=== PATIENT | female | born 1960 | race Caucasian/White ===

== ENCOUNTER 2024-05-01 14:38 | Inpatient (IN) | payer OTHER, SELFPAY ==
[2024-04-30] VITALS (8 sets, daily range): BP systolic 109–180; BP diastolic 76–109; BMI 29.1
[2024-04-30 11:28] LABS: % Basophils 0.1 % (0-2); % Immature Granulocytes 0.6 % (0-0.5); % Monocytes 9.2 % (1.7-9.3); % Neutrophils 82.1 % (42.2-75.2); Absolute Immature Granulocytes 0.1 10^3/uL (0-0.05); Absolute Lymphocytes 1.4 10^3/uL (1.2-3.4); Absolute Monocytes 1.6 10^3/uL (0.1-0.6); Absolute Neutrophils 14.1 10^3/uL (1.4-6.5); Hemoglobin 12.4 g/dL (12.0-16.0); Mean Corp Hgb Conc. 33.5 g/dL (33.0-37.0); Mean Corpuscular Hgb 28.6 pg (27.0-31.0); Mean Corpuscular Volume 85.5 fL (81.0-99.0); Mean Platelet Volume 9.4 fL (7.4-10.4); Nucleated Red Blood Cells % 0 %; Platelet Count 359 10^3/uL (130-400); Red Blood Cell Count 4.33 10^6/uL (4.20-5.40); Red Cell Dist. Width 14.5 % (11.5-14.5); White Blood Cell Count 17.2 10^3/uL (4.8-10.8)
[2024-04-30 11:38] LABS: AST (SGOT) 32 U/L (14-36); Albumin 4.8 g/dl (3.5-5.0); Alkaline Phosphatase 105 U/L (38-126); Blood Urea Nitrogen 33 mg/dl (7-17); Calcium 9.7 mg/dl (8.4-10.2); Carbon Dioxide 17 mmol/L (22-30); Chloride 102 mmol/L (98-107); Glucose 165 mg/dl (70-99); Lipase 77 U/L (23-300); Potassium 3.6 mmol/L (3.5-5.1); Sodium 143 mmol/L (135-145); Total Bilirubin 1.2 mg/dl (0.2-1.3); Total Protein 7.3 g/dl (6.3-8.2); eGFR 50.55
--- NOTE | 2024-04-30 11:41 | ED.GENMED ---
History of Present Illness
General
Chief Complaint: Abdominal Symptoms
Source: patient
Exam Limitations: none
Time Seen by Provider: 04/30/24 11:32
Nursing documentation reviewed up to this point in time: agreed with
History of Present Illness
History of Present Illness:
63-year-old female with history of HTN, HLD, GERD, hernia surgery 01/27, and hysterectomy presents stating 2 days ago she became nauseous and was vomiting 'a lot,' had generalized back ache, felt chilled but had no fever.
Yesterday she felt extremely thirsty, she could not hold anything down, several episodes of vomiting, and had heartburn.
Today she feels weak, her mouth is extremely dry, she has carpal spasms, vomited several times this morning her last emesis was 2 hours ago. Feels nauseous now. She denies chest pain or trouble breathing, denies abdominal pain. Denies diarrhea or
constipation.
Past History
Past History
ED Past Medical History: GERD, HTN and Hypercholesterolemia
ED Past Surgical History: Gynecological (Hysterectomy) and Other (Hernia surgery)
Review of Systems
Review of Systems
Allergies reviewed?: Yes
All Other Systems: ROS reviewed and negative except as documented in HPI and ROS
Constitutional: Reports fatigue; Denies fever
EENT: Denies sore throat
Respiratory: Denies trouble breathing
Cardiac: Denies chest pain
ABD/GI: Reports nausea and vomiting; Denies abdominal pain, diarrhea or constipated
: Denies dysuria, frequency, difficulty voiding or urgency
Musculoskeletal: Reports no symptoms
Skin: Reports no symptoms
Neurological: Reports no symptoms
Phy Exam
Physical Exam
Physical Exam:
GENERAL: No acute distress. A&Ox3.
CONSTITUTIONAL: Afebrile.
EYES: PERRL, conjunctivae normal
ENMT: moist mucus membranes, Pharynx nl
RESPIRATORY: Regular respirations, nonlabored, lungs clear.
CARDIOVASCULAR: Regular rate and rhythm, no murmurs, no rubs.
GI: Soft, nontender, normal BS
MUSCULOSKELETAL: Moves with ease. Well perfused.
SKIN: Warm, dry, pink
PSYCH: Normal mood and affect. Well kept, interactive and appropriate
NEUROLOGIC: Awake, alert and oriented. No focal neurological deficits
Course
Orders/Labs/Results
Orders:
Orders
04/30/24 11:04
Electrocardiogram (*1) Urgent
Reason for Study: Fatigue / Weakness
04/30/24 11:05
EKG- Treatment ONCE
04/30/24 11:06
Complete Blood Count/With Diff Urgent
Comprehensive Metabolic Panel Urgent
Lactic Acid Urgent
Lipase Urgent
04/30/24 11:08
Troponin I Urgent
04/30/24 11:40
0.9% Sodium Chloride 1000 ml [Nss] 1,000 ml IV BOLUS
Ondansetron Injectable [Zofran] 4 mg IV NOW STA
04/30/24 11:58
CT Abd/pel W Iv And Oral Contr Urgent
Comment:
Reason For Exam: vomiting, acidotic, hernia surg [place], belly benign
Iohexol [Omnipaque] See Protocol PO NOW STA
Pantoprazole [Protonix IV] 80 mg IV NOW STA
04/30/24 13:15
0.9% Sodium Chloride 1000 ml [Nss] 1,000 ml IV Wide Open mls/hr
04/30/24 13:49
Diphenhydramine [Benadryl] 50 mg .ROUTE .STK-MED ONE
Prochlorperazine [Compazine] 10 mg .ROUTE .STK-MED ONE
04/30/24 13:50
Diphenhydramine [Benadryl] 50 mg IV NOW STA
Prochlorperazine [Compazine] 10 mg IV NOW STA
04/30/24 14:37
Complete Blood Count/With Diff Urgent
Comprehensive Metabolic Panel Urgent
Lactic Acid Urgent
Magnesium Urgent
Comment: ADD ON
04/30/24 Dinner
NPO
Allow oral meds: Yes
Allow clear liquids: Sips of Clears
NPO with Ice Chips: Yes
04/30/24 16:30
Add On- LAB Routine
Tests Added?: mag level
04/30/24 17:30
Admit/Transfer Patient As Directed
Co-Sign Provider:
Level of Care: Observation services
Assign to:: Telemetry
Physician / Group: Mario Alberto Valles
Diagnosis: Nausea and Vomiting
Reason for Telemetry: Other
Other Reason for Telemetry: QTC
Date to Stop Telemetry: 05/02/24
Time to Stop Telemetry: 11:00
Reason for Hospitalization: ABOVE
PRN Pain Medication Management As Directed
May give lesser potent ordered pain med per pt: Yes
preference::
Protocol:: Medication orders for pain may be administered in a
manner that supports deferring to patient preference
when the pt is:
- Requesting an ordered lesser potent pain medication.
Least to most potent pain medications are defined
as: acetaminophen < NSAID < tramadol < opioids
(morphine, oxycodone, hydromorphone).
- Requesting a lesser dose of the same medication IF
ORDERED.
- Requesting a less intrusive route of administration
if both routes are prescribed by the provider (PO <
IV).
04/30/24 17:33
Code Status As Directed
Resuscitation Status: Full Code
04/30/24 18:04
Old Records Request [Obtain Records] As Directed
Dates of Information to be Released: last
Type of Information Requested: Discharge Summary
Other
Comment: OP notes from Dm
04/30/24 18:14
0.9% Sodium Chloride 1000 ml [Nss] 1,000 ml IV 100 mls/hr
Enoxaparin Sodium [Lovenox] 40 mg SC QPM
HydrALAZINE [Apresoline] 5 mg IV Q6HPRN PRN
Potassium Chloride [KCl] 40 meq Dextrose 5%/Water 250 ml [D5w] 250 ml IV NOW
Prochlorperazine [Compazine] 5 mg IV Q6HPRN PRN
04/30/24 18:14
SURGICAL CONSULT Routine
Consulting Provider: Lenny Rosales
Was physician already notified: Yes
Reason for consult: Nausea and vomiting. Large Hiatal Hernia on CT abd
DX Deep Vein Thrombosis Video Routine
04/30/24 18:15
0.9% Sodium Chloride 1000 ml [Nss] 1,000 ml IV 100 mls/hr
04/30/24 19:00
Flush (0.9% Sodium Chloride) [Flush (Nss)] See Dose Instructions IV PER PROTOCOL
04/30/24 19:43
Lactate Level [Lactic Acid] Urgent
04/30/24 20:00
0.9% Sodium Chloride [Nss (Preservative Free)] 10 ml IV BID
Pantoprazole [Protonix IV] 40 mg IV BID
04/30/24 20:14
Melatonin 5 mg PO NOW STA
04/30/24 21:30
Urinalysis Reflex To Culture Urgent
Date Specimen was Collected: 04/30/24
Time Specimen was Collected: 11:41
Urine Microscopic Reflex Cult Urgent
Urine Culture Urgent
PATRICA Source: U
Specimen Description:
Date Specimen was Collected: 04/30/24
Time Specimen was Collected: 11:41
05/01/24 02:17
Famotidine [Pepcid] 20 mg IV NOW STA
05/01/24 02:18
NG Tube [Gastrointestinal Tubes] As Directed
Type: [place]kins sump
To suction?: Yes
Type of suction: Low intermittent
Irrigate tube?: Yes
Irrigant: Tap Water
Frequency: Q4H
Amount in mls: 30
Irrigation Directions: Irrigate Q4H and PRN
05/01/24 02:19
0.9% Sodium Chloride [Nss (Preservative Free)] 8 ml IV NOW STA
05/01/24 06:57
Basic Metabolic Panel IN AM
Complete Blood Count/With Diff IN AM
Hepatitis C Antibody IN AM
05/01/24 08:00
Lidocaine [Lidocaine 4% Patch] 1 patch TOPICAL DAILY
Apply Lidocaine patch(s) to:: back
05/01/24 09:17
CXR2 [CR Chest - 2 Views ] Urgent
Comment:
Reason For Exam: leucocysis
05/01/24 09:26
Blood Culture Routine
PATRICA Source: Blood/Venous
Specimen Description:
05/01/24 10:16
Blood Culture Routine
PATRICA Source: Blood/Venous
Specimen Description:
05/01/24 11:19
Lorazepam [Ativan] 0.5 mg IV Q6HPRN PRN
05/01/24 11:20
HYDROmorphone [Dilaudid] 0.25 mg IV Q3HPRN PRN
HYDROmorphone [Dilaudid] 0.5 mg IV Q3HPRN PRN
05/01/24 11:26
0.9% Sodium Chloride [Nss (Preservative Free)] 0.25 ml IV Q6HPRN PRN
05/01/24 15:17
Procalcitonin Routine
PCT Algorithmm Indication: Sepsis
05/01/24 20:00
Remove Patch [Remove Lidocaine Patch] 1 patch REMOVE DAILY@1999
05/02/24 11:00
DC Protocol for Telemetry ONCE
Abnormal Lab Results
04/30/24 04/30/24 04/30/24
11:06 14:37 21:30
WBC 17.2 H 10^3/uL 13.8 H 10^3/uL
(4.8-10.8) (4.8-10.8)
RBC 3.85 L 10^6/uL
(4.20-5.40)
Hgb 11.1 L g/dL
(12.0-16.0)
Hct 32.8 L %
(37.0-47.0)
MCHC
RDW 14.6 H %
(11.5-14.5)
Abs Immat Gran (auto) 0.1 H 10^3/uL 0.1 H 10^3/uL
(0-0.05) (0-0.05)
Absolute Neuts (auto) 14.1 H 10^3/uL 11.7 H 10^3/uL
(1.4-6.5) (1.4-6.5)
Absolute Lymphs (auto) 0.9 L 10^3/uL
(1.2-3.4)
Absolute Monos (auto) 1.6 H 10^3/uL 1.2 H 10^3/uL
(0.1-0.6) (0.1-0.6)
Immature Gran % 0.6 H %
(0-0.5)
Neutrophils % 82.1 H % 84.2 H %
(42.2-75.2) (42.2-75.2)
Lymphocytes % 8.0 L % 6.8 L %
(20.5-51.1) (20.5-51.1)
Potassium 3.0 L mmol/L
(3.5-5.1)
Carbon Dioxide 17 L mmol/L 18 L mmol/L
(22-30) (22-30)
BUN 33 H mg/dl 28 H mg/dl
(7-17) (7-17)
Creatinine 1.2 H mg/dL
(0.6-1.0)
Glucose 165 H mg/dl 140 H mg/dl
(70-99) (70-99)
Lactic Acid 5.9 H* mmol/L 2.9 H mmol/L
(0.7-2.0) (0.7-2.0)
Calcium 8.3 L mg/dl
(8.4-10.2)
ALT 38 H U/L
(0-35)
Urine Ketones 1+ A
(Negative)
Ur Occult Blood Reflex 3+ A
(Negative)
Leukocyte Esterase Rfl Trace A
(Negative)
Urine RBC 16-20 A /HPF
(0-2)
Urine Bacteria (Reflex) Moderate A
(Negative)
05/01/24
06:57
WBC 20.7 H 10^3/uL
(4.8-10.8)
RBC 3.94 L 10^6/uL
(4.20-5.40)
Hgb 11.6 L g/dL
(12.0-16.0)
Hct 35.4 L %
(37.0-47.0)
MCHC 32.8 L g/dL
(33.0-37.0)
RDW 15.3 H %
(11.5-14.5)
Abs Immat Gran (auto) 0.2 H 10^3/uL
(0-0.05)
Absolute Neuts (auto) 17.5 H 10^3/uL
(1.4-6.5)
Absolute Lymphs (auto)
Absolute Monos (auto) 1.8 H 10^3/uL
(0.1-0.6)
Immature Gran % 0.8 H %
(0-0.5)
Neutrophils % 84.6 H %
(42.2-75.2)
Lymphocytes % 5.7 L %
(20.5-51.1)
Potassium
Carbon Dioxide 19 L mmol/L
(22-30)
BUN 22 H mg/dl
(7-17)
Creatinine
Glucose 127 H mg/dl
(70-99)
Lactic Acid
Calcium
ALT
Urine Ketones
Ur Occult Blood Reflex
Leukocyte Esterase Rfl
Urine RBC
Urine Bacteria (Reflex)
05/01/24 06:57
05/01/24 06:57
Vital Signs
Initial and Last Documented VS:
Initial Vital Signs
Temp Pulse Resp BP Pulse Ox
98.1 F 98 30 109/76 99
04/30/24 11:07 04/30/24 11:07 04/30/24 11:07 04/30/24 11:07 04/30/24 11:07
Last Documented Vital Signs
Temp Pulse Resp BP Pulse Ox
98.1 F 80 18 169/95 96
05/02/24 17:38 05/02/24 17:38 05/02/24 17:38 05/02/24 17:38 05/02/24 13:47
MDM/Problems Addressed
Differential Diagnosis Includes:
viral illness, dehydration, bowel obstruction
MDM/Problems Addressed:
63-year-old female with history of HTN, HLD, GERD, hernia surgery 01/2024 and hysterectomy presents stating 2 days ago she became nauseous and was vomiting 'a lot,' had generalized back ache, felt chilled but had no fever.
Yesterday she felt extremely thirsty, she could not hold anything down, several episodes of vomiting, and had heartburn.
Today she feels weak, her mouth is extremely dry, she has carpal spasms, vomited several times this morning her last emesis was 2 hours ago. Feels nauseous now. She denies chest pain or trouble breathing, denies abdominal pain. Denies diarrhea or
constipation.
Afebrile,
Abdomen benign
EKG Sinus w PAC
Lactic 5.2
CBC: WBC 17.2 with elevated neutrophils and monos
Fingerstick BS
CMP: BUN/Creat 33/1.2 Bicarb 17, glucose 165
Gap: [address] Ackerman who agrees, to hydrate CT abdomen.
1:15 p.m.
In to re evaluate, feeling better after Zofran. 1500 ml IV in so far. Will give another liter.
2:[address] abd/pelvis radiology report read: IMPRESSION:
Large hiatal hernia containing large volume diluted oral contrast. Oral contrast only additionally opacifies grossly unremarkable small bowel.
Entire large bowel markedly limited in evaluation without oral contrast opacification and with virtually completely empty hepatic flexure, transverse colon, descending colon and proximal to mid sigmoid colon. Mild descending colon and sigmoid
diverticulosis. Cannot exclude some thickening of the wall segments of the virtually completely empty colon such as colitis. No intestinal obstruction or free air.
Diffuse fatty liver and small simple left lobe hepatic cyst.
Bilateral subcentimeter low-attenuation renal lesions too small to characterize.
Moderate to marked T9 and L1 vertebral compression fractures, most likely remote.
Pt resting quietly, nausea improved.
Will repeat labs as abnormalities most likely due to significant vomiting and dehydration.
Case discussed with Dr. Balderas (Dr. Ackerman is off duty) who agrees with plan.
3:45 p.m.
Labs improving
WBC 13.8
Lactic 2.9
BUN/creat 1.0
Bicarb 18
Plan: Admit: Intractable nausea and vomiting, dehydration, lactic acidosis
Hospitalist notified of admission
*Critical Care Note
Total Time (30-74mins, 75-104mins- exclusive of procedures): Not Applicable
ED Attending Note
-
Portions of this chart may have been created with voice recognition software.� Occasional wrong word or��sound alike� substitutions may have occurred due to the inherent limitations of voice recognition software.
Discharge Plan
Departure
Patient Disposition: Admit
Date of Disposition: 04/30/24
Time of Disposition: 15:54
Admit to: Med/Surg
Presentation/result/management discussed w/ accepting MD/DO: Hospitalist
Condition: Fair
Discharge Problem:
Intractable nausea and vomiting, Acute dehydration, Acute lactic acidosis
Interventions
Interventions:
*Risk Screen - Suicide Last Done: 04/30/24 11:07
*General Assessment Last Done: 04/30/24 11:07
*Neglect/Abuse Screening Last Done: 04/30/24 11:07
*ED COVID-19 Vaccine History Last Done: 04/30/24 11:07
*Nursing Disposition Last Done: 04/30/24 18:25
YD-Uexmkp-Alvpkoqfgv Assessment Last Done: 04/30/24 11:16
Discharge Date and Time
Discharge Date/Time: 04/30/24 18:26
[2024-04-30 11:44] LABS: Lactic Acid 5.9 mmol/L (0.7-2.0)
[2024-04-30] MEDS: ZOFRAN 4 MG IV (11:44)
[2024-04-30] MEDS: NSS 1000 IV ×3 (11:45→19:03)
[2024-04-30 11:49] LABS: Troponin I < 0.012 ng/ml
[2024-04-30 11:58] LABS: ALT (SGPT) 38 U/L (0-35)
[2024-04-30] MEDS: PROTONIX IV 80 MG IV (12:08)
[2024-04-30] MEDS: OMNIPAQUE 50 ML PO (12:08)
[2024-04-30] MEDS: COMPAZINE 10 MG IV (13:51)
[2024-04-30] MEDS: BENADRYL 50 MG IV (13:51)
[2024-04-30 15:06] LABS: Lactic Acid 2.9 mmol/L (0.7-2.0)
[2024-04-30 15:07] LABS: ALT (SGPT) 23 U/L (0-35); AST (SGOT) 24 U/L (14-36); Alkaline Phosphatase 86 U/L (38-126); Blood Urea Nitrogen 28 mg/dl (7-17); Calcium 8.3 mg/dl (8.4-10.2); Carbon Dioxide 18 mmol/L (22-30); Chloride 106 mmol/L (98-107); Glucose 140 mg/dl (70-99); Sodium 142 mmol/L (135-145); Total Bilirubin 1.2 mg/dl (0.2-1.3); Total Protein 6.3 g/dl (6.3-8.2); eGFR > 60.00
[2024-04-30 15:11] LABS: % Basophils 0.1 % (0-2); % Immature Granulocytes 0.4 % (0-0.5); % Lymphocytes 6.8 % (20.5-51.1); % Monocytes 8.5 % (1.7-9.3); % Neutrophils 84.2 % (42.2-75.2); Absolute Immature Granulocytes 0.1 10^3/uL (0-0.05); Absolute Lymphocytes 0.9 10^3/uL (1.2-3.4); Absolute Monocytes 1.2 10^3/uL (0.1-0.6); Absolute Neutrophils 11.7 10^3/uL (1.4-6.5); Hematocrit 32.8 % (37.0-47.0); Hemoglobin 11.1 g/dL (12.0-16.0); Mean Corp Hgb Conc. 33.8 g/dL (33.0-37.0); Mean Corpuscular Hgb 28.8 pg (27.0-31.0); Mean Corpuscular Volume 85.2 fL (81.0-99.0); Nucleated Red Blood Cells % 0 %; Red Blood Cell Count 3.85 10^6/uL (4.20-5.40); Red Cell Dist. Width 14.6 % (11.5-14.5); White Blood Cell Count 13.8 10^3/uL (4.8-10.8)
--- NOTE | 2024-04-30 17:01 | HPS.HSE ---
Addendum entered and electronically signed by Mario Alberto Valles MD 04/30/24 18:12:
63 y/o female came the hospital with nausea and vomiting. Denies any outside food, no abdominal pain. She took 2 Advil after she started vomiting for back pain. No diarrhea
She had surgery at [facility] for hiatal hernia in January. Surgeons details are other details unclear
I personally performed a history and physical exam of the patient and discussed management with the resident. I reviewed the resident's note and agree with the documented findings and plan of care HPI/CC except for changes in my documentation.
CT-Large hiatal hernia containing large volume diluted oral contrast. Oral contrast only additionally opacifies grossly unremarkable small bowel.
Entire large bowel markedly limited in evaluation without oral contrast opacification and with virtually completely empty hepatic flexure, transverse colon, descending colon and proximal to mid sigmoid colon. Mild descending colon and sigmoid
diverticulosis. Cannot exclude some thickening of the wall segments of the virtually completely empty colon such as colitis. No intestinal obstruction or free air.Diffuse fatty liver and small simple left lobe hepatic cyst.Bilateral subcentimeter
low-attenuation renal lesions too small to characterize.Moderate to marked T9 and L1 vertebral compression fractures, most likely remote.
Awake alert oriented
Patient nauseous
Cardiovascular system S1-S2 appreciated
Chest clear to auscultation
# Nausea and vomiting
Large hiatal hernia
History of hiatal hernia repair at [place] in January
Will request surgery eval
N.p.o. with IV fluids PPI
If vomiting erlin NGT
Get records from [place]
# Elevated lactic acid-no evidence of infection-repeat and follow Lactate. Hold off on any antibiotics
# Hypokalemia-replace
# Hypertension-Hold Amlodipine, metoprolol and use prn Hydralazine.
# Hyperlipidemia-Hold atorvastatin
# Hepatic steatosis
# Osteoporosis/T9 and L1 compression fractures-chronic
# DVT prophylaxis-Lovenox
# Full code
Discussed with surgeon
Discussed with patient's daughter at bedside
Original Note:
Family Physician
-
Family Physician: NOT KNOW UNKNOWN - PT DOES
Chief Complaint
-
Nausea and vomiting.
History of Present Illness
Patient is a 63 year-old female with past medical history of GERD, HLD, HTN, Hiatal hernia surgery repair January 2024 who presents to ED complaining of ongoing Nausea and vomiting for the past 2 days. Patient states nausea and vomiting suddenly
started Sunday night. Patient states she recently had Hiatal Hernia surgery done at [facility] in January 2024. Today she felt extremely fatigued and has vomited a total of 9 times, hence her daughter brought her into the ED for
evaluation. Vomiting started after her meal on Sunday night. Reports she had home cooked meal. Patient states this is her first episode of N/V. She denies recent travel. She reports using Advil for Lower back pain on sunday. She denies fever,
chills, chest pain, abdominal pain, constipation, diarrhea. She last had a bowel movement today.
Medical History
Past Medical History
Past Medical History: Reports Other (Gerd, hypertension, hypercholesterolemia, hiatal hernia)
Past Surgical History: Reports Other (Hiatal hernia repair surgery done January 2024, hysterectomy)
Social History
Tobacco: Smoker
Alcohol: None
Drug: None
Living: Alone
Employment: Retired
Family History
Family History: Not pertinent
Allergies / Home Medications
Allergies reflects when Allergies were last updated in [employer].
Home Medications with original date entered in [employer]
Allergy/Medication List:
Allergies
Allergy/AdvReac Type Severity Reaction Status Date / Time
No Known Allergies Allergy Unverified 04/30/24 11:05
Home Medications
alendronate 70 mg tablet 70 mg PO QWEEK 04/30/24
amlodipine 10 mg tablet 10 mg PO DAILY 04/30/24
atorvastatin 20 mg tablet 20 mg PO DAILY 04/30/24
metoprolol succinate 25 mg tablet,extended release 24 hr 12.5 mg PO DAILY 04/30/24
pantoprazole 40 mg tablet,delayed release 40 mg PO DAILY 04/30/24
venlafaxine 75 mg tablet,extended release 24 hr 75 mg PO DAILY 04/30/24
Review of Systems
-
A 12 point ROS was completed and negative except as noted: Yes
Abdomen/GI: Reports See HPI
Physical Exam
Vital Signs
Vital Signs
Temp Pulse Resp BP Pulse Ox
98.1 F 94 20 148/109 98
04/30/24 11:07 04/30/24 13:45 04/30/24 13:45 04/30/24 13:00 04/30/24 13:45
Physical Exam
General: No Apparent Distress and Comfortable
HEENT: Moist mucous membranes
Respiratory: Clear; No Wheezes or Rales
Cardiac: S1/S2 and Regular Rhythm
GI: Soft, Non Tender, Non Distended and Normal Bowel Sounds
Musculoskeletal: No Edema
Skin: Warm and Dry
Neuro: Awake, Alert, Oriented and AO x 3
Psych: Calm
Laboratory Results
-
04/30/24 14:37
04/30/24 14:37
Laboratory Results
Lactic Acid 2.9 mmol/L (0.7-2.0) H 04/30/24 14:37
Total Bilirubin 1.2 mg/dl (0.2-1.3) 04/30/24 14:37
AST 24 U/L (14-36) 04/30/24 14:37
ALT 23 U/L (0-35) 04/30/24 14:37
Alkaline Phosphatase 86 U/L (38-126) 04/30/24 14:37
Troponin I < 0.012 ng/ml 04/30/24 11:08
Lipase 77 U/L (23-300) 04/30/24 11:06
Data Reviewed
-
Lab Data: Labs Reviewed by me
Impression/Plan
-
Assessment/Plam
#Intractable nausea and vomiting
#Dehydration
#Lactic acidosis
#Large hiatal Hernia on abdominal CT scan
-Consult surgery to evaluate
-Keep NPO with no po meds
-Lactic acidosis improving with IV fluids, continue with IV fluids
-Compazine for Nausea
-EKG normal sinus rhythm with Premature Atrial Complexes
-Replete potassium
-IV Protonix 40mg BID
# Hypertension
-Continue metoprolol
# GERD
-IV Protonix 40 mg twice daily
# Hyperlipidemia
# Anxiety
CODE STATUS full code
DVT prophylaxis; Lovenox
[2024-04-30 17:10] LABS: Magnesium 1.8 mg/dl (1.6-2.3)
[2024-04-30] MEDS: COMPAZINE 5 MG IV (18:59)
[2024-04-30] MEDS: LOVENOX 40 MG SC (19:00)
[2024-04-30] MEDS: NSS (PRESERVATIVE FREE) 10 ML IV (19:28)
[2024-04-30] MEDS: KCL 270 MEQ IV (19:28)
[2024-04-30] MEDS: PROTONIX IV 40 MG IV (19:28)
[2024-04-30 20:12] LABS: Lactic Acid 1.6 mmol/L (0.7-2.0)
[2024-04-30 21:39] LABS: Urine Albumin Trace (Neg - Trace); Urine Bilirubin Negative (Negative); Urine Character Clear (Clear); Urine Color Yellow; Urine Glucose Negative (Negative); Urine Ketone 1+ (Negative); Urine Leukocyte Trace (Negative); Urine Nitrite Negative (Negative); Urine Occult Blood 3+ (Negative); Urine Urobilinogen Negative (Neg - 1+)
[2024-04-30 21:55] LABS: Urine Bacteria Moderate (Negative); Urine Red Blood Cell 16-20 /HPF (0-2)
[2024-05-01] VITALS (7 sets, daily range): BP systolic 126–166; BP diastolic 68–91
[2024-05-01] MEDS: APRESOLINE 5 MG IV (01:10)
[2024-05-01] MEDS: COMPAZINE 5 MG IV ×2 (01:11→08:37)
[2024-05-01] MEDS: PEPCID 20 MG IV (02:24)
[2024-05-01] MEDS: NSS (PRESERVATIVE FREE) 8 ML IV (02:25)
--- NOTE | 2024-05-01 02:32 | PTCARENOTE ---
Patient with vomiting throughout the night. NGT ordered for patient. Patient is refusing. Patient is AAO x3. Education provided regarding benefit and purpose of having NGT given her current symptoms. Patient continues to refuse. Provider is aware.
Will continue to monitor.
[2024-05-01] MEDS: NSS 1000 IV ×2 (05:28→16:56)
--- NOTE | 2024-05-01 08:03 | W.PN.HOSP.TC ---
Addendum entered and electronically signed by Mario Alberto Valles MD 05/01/24 14:29:
I personally performed a history and physical exam of the patient and discussed management with the resident. I reviewed the resident's note and agree with the documented findings and plan of care HPI/CC except changes in my documentation.
Seen earlier and discussed with surgeon. Late documentation.
Patient had refused NGT, but agreed after surgeon convinced and placed.
Awake alert oriented
Patient nauseous
Cardiovascular system S1-S2 appreciated
Chest clear to auscultation
# Nausea and vomiting
Surgeon feels this is acute gastric outlet obstruction from early postoperative paraesophageal hernia recurrence
She finally agreed to NGT Decompression.
Surgery eval appreciated
N.p.o. with IV fluids PPI
Get records from [place]
I have also left a message for Dr.Nathanial Burks to call back.
# Elevated lactic acid-no evidence of infection-repeat and follow Lactate.
Lactate has normalized. White count elevated today
Chest x-ray without any aspiration.
Check procalcitonin to see if there is any evidence of infection versus reactive versus aspiration pneumonitis from vomiting
If patient develops a fever we will start antibiotics- Rocephin /Flagyl
# Hypokalemia-replaced
# Hypertension-Hold Amlodipine, metoprolol and use prn Hydralazine.
# Hyperlipidemia-Hold atorvastatin
# Hepatic steatosis
# Osteoporosis/T9 and L1 compression fractures-chronic
# DVT prophylaxis-Lovenox
# Full code
D/W Surgeon
D/W Daughter at bed side
Original Note:
Today's Communication/Plan
-
Chest x-ray to evaluate leukocytosis
Will need NGT
IV hydralazine as needed
IV Ativan as needed
Assessment / Plan
Assessment / Plan
Assessment
Nausea and vomiting
Leukocytosis
Conditions present prior to admission
Hypertension
Hyperlipidemia
Anxiety
Osteoporosis T9 and L1 compression fractures
Plan
#Nausea and vomiting
-Large hiatal hernia on abdominal CT scan
-Surgery consulted, pending evaluation
-Keep n.p.o
-If nausea and vomiting continues to worsen, will need NGT for bowel decompression
-Records requested from [facility]
# Leukocytosis
-Elevated white blood cell count today at 20.7
-Chest x-ray for evaluation, currently pending
# Hyperlipidemia
Holding atorvastatin
# Anxiety
IV as needed med with Ativan
# Hypertension
Holding oral amlodipine, metoprolol.
Will use as needed IV hydralazine
# Hepatic steatosis
# Osteoporosis /T9 and L1 compression fractures
CODE STATUS Full code
DVT prophylaxis: Lovenox
Anticipated Discharge: > 48 hours
Subjective/Interval History
-
Overnight events; patient's multiple episodes of vomiting. Plan was to start NG tube. Patient declined.
At bedside today, declines NG tube again
Objective Data
-
Labs:
Laboratory Results
05/01/24
06:57
WBC Pending
Hgb Pending
Hct Pending
Plt Count Pending
Sodium Pending
Potassium Pending
Chloride Pending
Carbon Dioxide Pending
BUN Pending
Creatinine Pending
Glucose Pending
Calcium Pending
Vital Signs:
Vital Signs
Temp Pulse Resp BP Pulse Ox
98.5 F 96 18 149/86 94
05/01/24 03:22 05/01/24 03:22 05/01/24 03:22 05/01/24 03:22 05/01/24 03:22
I&O
04/30/24 05/01/24 05/02/24
06:59 06:59 06:59
Intake Total 1200 / 1200
Balance 1200 / 1200
Review of Systems
-
All other systems: Reviewed and negative (except as documented)
Physical Exam
-
General: No Apparent Distress
Respiratory: Clear to Auscultation; Negative Wheezes or Crackles
Cardiac: Regular Rhythm and S1/S2
GI: Soft, Nontender, Nondistended and Normal Bowel Sounds
Musculoskeletal: No Edema
Neuro: Awake, Alert, Oriented and AO x 3
[2024-05-01 08:19] LABS: % Basophils 0.1 % (0-2); % Immature Granulocytes 0.8 % (0-0.5); % Lymphocytes 5.7 % (20.5-51.1); % Monocytes 8.8 % (1.7-9.3); % Neutrophils 84.6 % (42.2-75.2); Absolute Immature Granulocytes 0.2 10^3/uL (0-0.05); Absolute Lymphocytes 1.2 10^3/uL (1.2-3.4); Absolute Monocytes 1.8 10^3/uL (0.1-0.6); Absolute Neutrophils 17.5 10^3/uL (1.4-6.5); Hematocrit 35.4 % (37.0-47.0); Hemoglobin 11.6 g/dL (12.0-16.0); Mean Corp Hgb Conc. 32.8 g/dL (33.0-37.0); Mean Corpuscular Hgb 29.4 pg (27.0-31.0); Mean Corpuscular Volume 89.8 fL (81.0-99.0); Mean Platelet Volume 10.1 fL (7.4-10.4); Nucleated Red Blood Cells % 0 %; Platelet Count 271 10^3/uL (130-400); Red Blood Cell Count 3.94 10^6/uL (4.20-5.40); Red Cell Dist. Width 15.3 % (11.5-14.5); White Blood Cell Count 20.7 10^3/uL (4.8-10.8)
[2024-05-01] MEDS: PROTONIX IV 40 MG IV ×2 (08:37→21:06)
[2024-05-01] MEDS: LIDOCAINE 4% PATCH TOPICAL (08:49)
[2024-05-01 09:07] LABS: Blood Urea Nitrogen 22 mg/dl (7-17); Calcium 8.5 mg/dl (8.4-10.2); Carbon Dioxide 19 mmol/L (22-30); Chloride 107 mmol/L (98-107); Estimated Creatinine Clearance 95 ml/min; Glucose 127 mg/dl (70-99); Potassium 3.5 mmol/L (3.5-5.1); Sodium 143 mmol/L (135-145); eGFR > 60.00
[2024-05-01] MEDS: NSS (PRESERVATIVE FREE) 10 ML IV ×2 (09:58→21:06)
--- NOTE | 2024-05-01 10:38 | CON.GS ---
Addendum entered and electronically signed by Lenny Rosales MD 05/01/24 11:32:
Patient seen and examined with surgery resident. Agree with documented consultation with additions/specifics noted here.
HPI: 63-year-old female who recently underwent robotic assisted laparoscopic paraesophageal hernia repair with gastropexy the end of January at [facility] with Dr. Burks of thoracic surgery. She reports a uneventful postoperative
recovery and her daughter was able to help provide her [place] medical record summaries which are reviewed with the 2 of them. She had initial postoperative upper GI swallow on day 1 which was reportedly unremarkable. She was subsequently
discharged home on a liquid/soft diet and advanced over the next few weeks. After her initial recovery patient states that she was doing well without any GERD, dysphagia, odynophagia, nausea or vomiting or dry heaves.
She did have COVID in February but did not have severe symptoms. She was helping a friend move last month and lifting boxes but she does not recall them being particularly heavy.
On Sunday after dinner she acutely developed upper abdominal/substernal discomfort with intractable nausea and vomiting. It persisted throughout the day Sunday and into Sunday where she was unable to tolerate any even liquid intake prompting
emergency department evaluation. Her symptoms persisted this a.m. and she is continued with dry heaves and nausea or vomiting overnight.
Patient's past medical history is only otherwise notable for hypertension and hypercholesterolemia
Past abdominal surgical history only notable for her recent robotic assisted laparoscopic paraesophageal hernia repair with gastropexy
AF VSS but with sinus tachycardia
NAD, but acutely ill-appearing, AAOx3
ABD: Soft, nondistended, no tenderness to palpation
Laboratory test reviewed notable for leukocytosis of 20.7, hemoglobin 11.6. Normal platelet count. Electrolytes with elevated BUN of 22 and creatinine of 0.6. Lactic acid normal in the emergency department.
CT abdomen/pelvis imaging reviewed. Large paraesophageal hernia with organoaxial volvulus and resultant gastric outlet obstruction. No pneumatosis. No free air. No surrounding inflammatory reaction.
Assessment/plan: 63-year-old female presenting with acute gastric outlet obstruction from early postoperative paraesophageal hernia recurrence
Advised patient and her daughter of the importance and necessity for NG tube decompression for initial management which they were in agreement with after my discussions with indications and rationale for placement. I subsequently placed the NG tube
myself at bedside which she tolerated very well and immediately obtained 750 mL to 1 L of dark gastric contents upon placement.
Continue NG tube decompression as there are no signs of immediate compromise or threat of the stomach.
Continue n.p.o.
IV fluid hydration
X-ray ordered to confirm NG tube positioning
Anticipate obtaining follow-up upper GI contrast study tomorrow to confirm if gastric outlet obstruction component has resolved with decompression.
Original Note:
Consultation
-
Date/Time Consultation Requested: 05/01/2024
Date/Time Consultation Performed: 05/01/2024
Performing Provider: Dr. Lenny Rosales, Dr. Tyler Awan
Reason for Consultation: Intractable Nausea/Vomiting
Medical History
-
Chief Complaint: Intractable Nausea/Vomiting
History of Present Illness:
Analia Best is a 63 yo F who presented to the [facility] Sunday morning for intractable nausea and vomiting that started on Sunday night.
She reports the nausea and vomiting started in the evening on Sunday after eating normally throughout the day. She had several episodes of brown/green/yellow vomitus during this time. She attempted to sip water but was unable to tolerate. She was
able to pass gas and had a bowel movement within 24 hours of coming to the ED. CT scan after arrival to the ED showed large hiatal hernia.
She reports a hiatal hernia repair surgery with laparoscopic gastropexy in January of this year at [place] with Dr. Burks.
The patient denies any preceding URI, cough, vomiting episodes, or trauma. She endorses having helped a friend move within the last month and was lifting boxes, though she cannot recall how heavy they might have been. She had follow up imaging
immediately post-op which showed no issues and a follow up appointment with her surgeon that was unremarkable.
Past Medical History
Past Medical History: HTN and Hypercholesterolemia
Past Surgical History: Other (Hiatal Hernia repair)
Social History
Tobacco: Smoker
Alcohol: None
Drug: None
Living: Alone
Employment: Retired
Family History
Family History: Reviewed & Not Pertinent
Allergies / Home Medications
Allergy/AdvReac Type Severity Reaction Status Date / Time
No Known Allergies Allergy Unverified 04/30/24 11:05
�Medication �Instructions �Recorded �Confirmed �Type
alendronate 70 mg tablet 70 mg PO QWEEK 04/30/24 04/30/24 History
amlodipine 10 mg tablet 10 mg PO DAILY 04/30/24 04/30/24 History
atorvastatin 20 mg tablet 20 mg PO DAILY 04/30/24 04/30/24 History
metoprolol succinate 25 mg 12.5 mg PO DAILY 04/30/24 04/30/24 History
tablet,extended release 24 hr
pantoprazole 40 mg tablet,delayed 40 mg PO DAILY 04/30/24 04/30/24 History
release
venlafaxine 75 mg tablet,extended 75 mg PO DAILY 04/30/24 04/30/24 History
release 24 hr
Review of Systems
-
History Source: Patient and Family
All other systems: Negative unless noted
Constitutional: No Symptoms
EENT: No Symptoms
Respiratory: No Symptoms
Cardiac: No Symptoms
Abdomen/GI: Nausea and Vomiting
: No Symptoms
Musculoskeletal: No Symptoms
Skin: No Symptoms
Neurological: No Symptoms
Endocrine: No Symptoms
Hematologic/Lymphatic: No Symptoms
A 10 point review of systems was completed, and was negative except as per HPI.
Physical Exam
Vital Signs
Temp Pulse Resp BP Pulse Ox
98.6 F 98 18 149/91 94
05/01/24 07:08 05/01/24 07:08 05/01/24 07:08 05/01/24 07:08 05/01/24 07:08
0905/01/24 05/02/24
06:59 06:59 06:59
Actual Weight 76.799 kg
Body Mass Index (BMI) 29.1
Lab Results
05/01/24 06:57
05/01/24 06:57
WBC 20.7 10^3/uL (4.8-10.8) H 05/01/24 06:57
Hgb 11.6 g/dL (12.0-16.0) L 05/01/24 06:57
Hct 35.4 % (37.0-47.0) L 05/01/24 06:57
Plt Count 271 10^3/uL (130-400) D 05/01/24 06:57
Abs Immat Gran (auto) 0.2 10^3/uL (0-0.05) H 05/01/24 06:57
Neutrophils % 84.6 % (42.2-75.2) H 05/01/24 06:57
Physical Exam
General: Well Developed, Well Nourished and Other (Discomfort)
HEENT: Normocephalic, Anicteric, Moist Mucous Membranes and Atraumatic
GI: Soft, Non Tender and Non Distended
Musculoskeletal: No Clubbing, No Cyanosis and No Edema
Neuro: Awake, Alert and Oriented
Assessment / Plan
-
63 year old F with h/o laparoscopic gastropexy for hiatal hernia in January 2024 who presented to the [facility] for intractable nausea and vomiting x3 days
#Large Hiatal Hernia, possible surgical failure
#Intractable nausea/vomiting
- NG Tube placed at bedside, drained approx. 1L of gastric fluid at time of placement
- Plan for gastric follow through in the AM to check for resolution of gastric torsion, N/V
- Keep NPO. Can give Ativan in the PM to help patient sleep due to anxiety/NG tube discomfort
- Patient should plan to follow up with [place] surgeon Dr. Burks post discharge for possible revision of hernia repair
[2024-05-01] MEDS: NSS (PRESERVATIVE FREE) 0.25 ML IV ×2 (13:35→21:07)
[2024-05-01] MEDS: ATIVAN 0.5 MG IV ×2 (13:45→21:07)
[2024-05-01 15:50] LABS: Procalcitonin < 0.05 ng/ml (0.0-0.25)
[2024-05-01] MEDS: LOVENOX SC (17:45)
[2024-05-01 18:32] LABS: Hepatitis C Antibody Negative (Negative)
[2024-05-02 03:47] VITALS: BP 131/73
[2024-05-02] MEDS: NSS 1000 IV ×2 (05:45→17:38)
[2024-05-02 07:00] VITALS: BP 114/74
[2024-05-02] MEDS: PROTONIX IV 40 MG IV ×2 (08:19→20:57)
[2024-05-02] MEDS: LIDOCAINE 4% PATCH 1 PATCH TOPICAL (08:20)
[2024-05-02] MEDS: NSS (PRESERVATIVE FREE) 10 ML IV ×2 (08:20→20:57)
[2024-05-02 08:23] LABS: Hematocrit 31.9 % (37.0-47.0); Hemoglobin 10.2 g/dL (12.0-16.0); Mean Corpuscular Hgb 28.9 pg (27.0-31.0); Mean Corpuscular Volume 90.4 fL (81.0-99.0); Mean Platelet Volume 9.7 fL (7.4-10.4); Platelet Count 259 10^3/uL (130-400); Red Blood Cell Count 3.53 10^6/uL (4.20-5.40); Red Cell Dist. Width 15.2 % (11.5-14.5); White Blood Cell Count 10.9 10^3/uL (4.8-10.8)
[2024-05-02 08:57] LABS: Blood Urea Nitrogen 22 mg/dl (7-17); Calcium 8.1 mg/dl (8.4-10.2); Carbon Dioxide 25 mmol/L (22-30); Chloride 108 mmol/L (98-107); Estimated Creatinine Clearance 71 ml/min; Glucose 99 mg/dl (70-99); Potassium 3.3 mmol/L (3.5-5.1); Sodium 144 mmol/L (135-145); eGFR > 60.00
--- NOTE | 2024-05-02 09:17 | W.PN.HOSP.TC ---
Addendum entered and electronically signed by Mario Alberto Valles MD 05/02/24 13:12:
Patient felt good this morning and went for upper GI series after which she is feeling really nauseous. Daughter was at bedside when I saw her. No pain
Examination awake and alert
No abdomen tenderness
Decreased bowel sounds
Upper GI series reviewed by me-gastric outlet obstruction
# Nausea and vomiting
Upper GI series still with gastric outlet obstruction despite NG tube decompression and conservative measures
Patient may need surgery
I spoke to Dr. Dobbins at [place] yesterday who has kindly accepted the patient on his service for transfer
Continue with NGT Decompression.
Surgery eval appreciated
N.p.o. with IV fluids PPI
Dr.Nathanial Burks did surgery-for hiatal hernia in January 2024
# Elevated lactic acid-no evidence of infection
Lactate has normalized.
Chest x-ray without any aspiration.
Procal neg. White count down.
If patient develops a fever we will start antibiotics- Rocephin /Flagyl
# Hypokalemia-replaced
# Hypertension-Hold Amlodipine, metoprolol and use prn Hydralazine.
# Hyperlipidemia-Hold atorvastatin
# Hepatic steatosis
# Osteoporosis/T9 and L1 compression fractures-chronic
# DVT prophylaxis-Lovenox
# Full code
D/W Surgeon
D/W Daughter at bed side
Resident spoke to transfer center today and transfer finalized. I had already spoken to attending Dr. Kapoor yesterday. Patient and daughter are agreeable for transfer
Family still wants to talk to Dr. Downs
Total time spent 55 minutes
Original Note:
Today's Communication/Plan
-
transfer back to [place], to Dr Ye Dobbins's service
Assessment / Plan
Assessment / Plan
Assessment
Nausea and vomiting
Leukocytosis
Conditions present prior to admission
Hypertension
Hyperlipidemia
Anxiety
Osteoporosis T9 and L1 compression fractures
Plan
#Nausea and vomiting
-Large hiatal hernia on abdominal CT scan
-Surgeon Input appreciated. Most likely acute gastric outlet obstruction from early postoperative paraesophageal hernia recurrence
-Keep n.p.o
-NGT decompression
-Records requested from [place]
-Upper GI series today Large hiatal hernia with organoaxial rotation/volvulus
-Contacted [facility] @12:25pm. Initiated transfer back to [facility], to Dr Ye Dobbins's service(covering for Dr Vik Burks)
-Spoke to Dr Dobbins today as well, States he will accept patient
# Leukocytosis
-Trending down 20.7>> 10.9
-Chest x-ray 05/01 With no evidence of aspiration.
# Hyperlipidemia
Holding atorvastatin
# Anxiety
IV as needed med with Ativan
# Hypertension
Holding oral amlodipine, metoprolol.
Will use as needed IV hydralazine
# Hepatic steatosis
# Osteoporosis /T9 and L1 compression fractures
CODE STATUS Full code
DVT prophylaxis: Lovenox
Anticipated Discharge: Today
Subjective/Interval History
-
Met the patient at bedside. Patient still nauseous. Reports nausea similar to symptom on presentation
Objective Data
-
Labs:
Laboratory Results
05/02/24
07:12
WBC 10.9 H
Hgb 10.2 L
Hct 31.9 L
Plt Count 259
Sodium 144
Potassium 3.3 L
Chloride 108 H
Carbon Dioxide 25
BUN 22 H
Creatinine 0.8
Glucose 99
Calcium 8.1 L
Vital Signs:
Vital Signs
Temp Pulse Resp BP Pulse Ox
98.7 F 77 18 114/74 94
05/02/24 07:00 05/02/24 07:00 05/02/24 07:00 05/02/24 07:00 05/02/24 07:00
I&O
05/01/24 05/02/24 05/03/24
06:59 06:59 06:59
Intake Total 1200 / 1200 1320 / 1320
Output Total 1500 / 1500
Balance 1200 / 1200 -180 / -180
Review of Systems
-
All other systems: Reviewed and negative (Except as documented)
Physical Exam
-
Cardiac: S1/S2
GI: Soft, Nontender and Nondistended
[2024-05-02] MEDS: COMPAZINE 5 MG IV ×2 (11:46→17:35)
[2024-05-02] MEDS: KCL 270 MEQ IV (11:47)
[2024-05-02] MEDS: ATIVAN 0.5 MG IV ×3 (12:00→18:22)
--- NOTE | 2024-05-02 13:30 | W.PN.GS2 ---
Today's Communication / Plan
-
transfer to [place]
Assessment / Plan
-
63F with recurrent PEH and GOO
AFVSS, comfortable with NGT in place
UGI today reveals persistent GOO
Recommend transfer to pt her foregut surgeon at [place], he has spoken to the patient and family already.
Pls call with questions
Subjective Data
-
Date of Service: May 02, 2024
AFVSS, feels much better with NGT to suction
Objective Data
-
Intake and Output
05/01/24 05/02/24 05/03/24
06:59 06:59 06:59
Intake Total 1200 / 1200 1320 / 1320
Output Total 1500 / 1500
Balance 1200 / 1200 -180 / -180
Intake:
IV fluids (Total) 1200 / 1200 1200 / 1200
Amount instilled into GI Tube ( 120 / 120
Total)
Keith Sump 120 / 120
Output:
Gastrointestinal tube output ( 1500 / 1500
Total)
Keith Sump 1500 / 1500
Other:
Number of approximated MODERATE 5 3
amounts of urine
Vital Signs
Temp Pulse Resp BP Pulse Ox
98.7 F 77 18 114/74 94
05/02/24 07:00 05/02/24 07:00 05/02/24 07:00 05/02/24 07:00 05/02/24 07:00
Lab Results
05/02/24 07:12
05/02/24 07:12
Calcium 8.1 mg/dl (8.4-10.2) L 05/02/24 07:12
Magnesium 1.8 mg/dl (1.6-2.3) 04/30/24 14:37
Total Bilirubin 1.2 mg/dl (0.2-1.3) 04/30/24 14:37
AST 24 U/L (14-36) 04/30/24 14:37
ALT 23 U/L (0-35) 04/30/24 14:37
Alkaline Phosphatase 86 U/L (38-126) 04/30/24 14:37
Total Protein 6.3 g/dl (6.3-8.2) 04/30/24 14:37
Albumin 4.0 g/dl (3.5-5.0) 04/30/24 14:37
Physical Exam
-
Gen: NAD
Abd: soft, nt, nd
[2024-05-02 13:47] VITALS: BP 156/90
[2024-05-02] MEDS: NSS (PRESERVATIVE FREE) 0.25 ML IV (15:10)
--- NOTE | 2024-05-02 15:24 | W.DCSUMMARY ---
Discharge Summary
Discharge Data
Date of Admission: 05/01/24
Date of Discharge: 05/02/24
-
Pending Results: No
Hospital Course
BRIEF HOSPITAL COURSE: This is a 63-year-old female who recently underwent robotic assisted laparoscopic paraesophageal hernia repair with gastropexy the end of January at [facility] with Dr. Burks of thoracic surgery presented to ""ED complaining of Nausea and vomiting ongoing for the past 2 days before presentation. Patient reports after dinner she acutely developed upper abdominal/substernal discomfort with intractable nausea and vomiting where she was unable to tolerate
any liquid intake prompting emergency department evaluation. Evaluation with abdominal CT scan in the ED showed Large paraesophageal hernia with organoaxial volvulus and resultant gastric outlet obstruction. No pneumatosis. No free air. No
surrounding inflammatory reaction. General Surgery was consulted for further evaluation. Patient initially declined NG tube compression, but after discussion with the surgeon, SHE AGREED and NG tube was placed. Immediately obtained 750ml to 1 L of
dark gastric contents upon placement. After placement of NGT, patient reports mild improvement in symptom.
An Upper GI series obtained today with Evidence of gastric outlet obstruction despite NGT decompression and conservative measures. Patient felt extremely nauseous after upper GI series. It was recommended patient gets transferred back to [facility] as she may need surgery. After discussion with Dr Ye Dobbins at [facility], patient was accepted for a transfer to his service.
Patient and daughter are agreeable for transfer.
On the day of transfer, Patient awake and alert. Abdomen non tender, with decreased bowel sounds.
Discharge Plan
-
Referrals:
UNKNOWN - PT DOES,NOT KNOW [Family Provider] -
Prescriptions:
No Action
atorvastatin 20 mg Tablet
20 mg PO DAILY
alendronate 70 mg Tablet
70 mg PO QWEEK
Patient Comments:
04/30/24: Patient does not have set day of week she takes this medication.
amlodipine 10 mg Tablet
10 mg PO DAILY
pantoprazole 40 mg Tablet,Delayed Release (Dr/Ec)
40 mg PO DAILY
metoprolol succinate 25 mg Tablet Extended Release 24 Hr
12.5 mg PO DAILY
venlafaxine 75 mg Tablet Extended Release 24hr
75 mg PO DAILY
Discharge Orders:
Discharge Patient (As Directed); Ordered 05/02/24
Ordered By: Mario Alberto Valles
Discharge Date and Time
Print Language: THAI
[2024-05-02] MEDS: LOVENOX 40 MG SC (17:36)
[2024-05-02 17:38] VITALS: BP 169/95
[2024-05-02 19:47] VITALS: BP 135/90
[2024-05-02 23:56] VITALS: BP 136/87
[2024-05-03] MEDS: ATIVAN 0.5 MG IV (00:43)
[2024-05-03] MEDS: NSS (PRESERVATIVE FREE) 0.25 ML IV (00:43)
--- NOTE | 2024-05-03 02:00 | PTCARENOTE ---
Patient being transferred via EMS to [facility]. Patient is AAO x3, on RA, in no acute distress. Patient has NGT clamped for transport per order. Report given to SARITHA Avitia. Patient has all belongings.
--- NOTE | 2024-05-03 08:47 | CM ---
met with patient at [facility].patient lives alone in house with 4 monalisa,her bed and bath is on the second floor,she amb I and i is I with her adl.she has no poa.
patient has no pcp or health insurance.
patient adm with n/v,she is npo,has ngt to suction,upper gi slowed persistent goo.patient transferred to [facility].
== END 2024-05-03 01:55 | disposition short-term general hospital (02) | DRG 381 ==
LOC: 4 EAST ACU 14:38
PROVIDERS: Registered Nurse; Student in an Organized Health Care Education/Training Program; ADMITTING PHYSICIAN Hospitalist; CONSULT PHYSICIAN Surgery; EMERGENCY PHYSICIAN Emergency Medicine
PROC: 0D9670Z Drainage of Stomach with Drainage Device, Via Natural or Artificial Opening (ICD-10-PCS; 2024-05-01)
DX: K31.1 Adult hypertrophic pyloric stenosis (principal); E87.20 Acidosis, unspecified; K46.9 Unspecified abdominal hernia without obstruction or gangrene; F41.9 Anxiety disorder, unspecified; I10 Essential (primary) hypertension
CPT/HCPCS: 71046; 74177; 74240; 80048; 80053; 81003; 81015; 83605; 83690; 83735; 84145; 84484; 85025; 85027; 86803; 87040; 87086; 93005; 96361; 96374; 96375; 99285; Q9967